=== PATIENT | female | born 1985 | race Caucasian/White ===

== ENCOUNTER 2016-10-07 10:02 | Emergency (ER) | payer MEDICAID ==
[2016-10-07] MEDS ORDERED: DIAZEPAM INJ 10 MG/2 ML DISP.SYRIN IM ONE (11:01)
--- NOTE | 2016-10-07 11:03 | ER Document Report ---
ED Psych Disorder / Suicide - General Chief Complaint: Anxiety Stated Complaint: ANXIEY Time seen by provider: 11:01 Mode of Arrival: Ambulatory Information source: Patient TRAVEL OUTSIDE OF THE [place] IN LAST 30 DAYS: No - HPI Patient complains to provider of: Other - Anxiety/panic attack Onset was: Gradual Severity: Moderate Associated symptoms: Anxious Similar symptoms previously: Yes Notes: Patient is a 31-year-old female with a history of anxiety/panic attacks, who presents to the emergency room complaining of chest tightness with panic attack like symptoms that actually started yesterday, states she had to leave work early yesterday, went home and took Xanax, slept for a few hours, woke up and was feeling much better, but then in order to sleep last night took another half a Xanax and trazodone, slept well throughout the night, states she was getting ready for work this morning, started to feel be anxiety coming on again with chest tightness, and she has been having increasing symptoms since, she took her Wellbutrin this morning but did not take any Xanax as she was planning to go to work, patient reports yesterday was a long day, and she had an argument with her boyfriend over "things that I know are in my head and not really happening", patient is a smoker, occasionally drinks alcohol, and occasionally smokes marijuana - Related Data Allergies/Adverse Reactions: No Known Allergies Allergy (Verified 03/03/15 17:05) Past Medical History - General Information source: Patient - Social History Smoking Status: Current Every Day Smoker Frequency of alcohol use: Occasional Drug Abuse: Marijuana Family History: Reviewed & Not Pertinent Patient has suicidal ideation: No Patient has homicidal ideation: No Renal/ Medical History: Denies: Hx Peritoneal Dialysis Psychiatric Medical History: Reports: Hx Anxiety Past Surgical History: Reports: Hx Section - x2 Review of Systems - Review of Systems Constitutional: No symptoms reported EENT: No symptoms reported Cardiovascular: See HPI Respiratory: No symptoms reported Gastrointestinal: No symptoms reported Genitourinary: No symptoms reported Female Genitourinary: No symptoms reported Musculoskeletal: No symptoms reported Skin: No symptoms reported Hematologic/Lymphatic: No symptoms reported Neurological/Psychological: See HPI -: Yes All other systems reviewed and negative Physical Exam - Vital signs Vitals: Temp Pulse Resp BP Pulse Ox 98.2 F 78 22 H 121/83 100 10/07/16 10:12 10/07/16 10:12 10/07/16 10:12 10/07/16 10:12 10/07/16 10:12 Interpretation: Normal - General General appearance: Appears well, Alert - HEENT Head: Normocephalic, Atraumatic Eyes: Normal Pupils: PERRL - Respiratory Respiratory status: No respiratory distress Chest status: Nontender Breath sounds: Normal Chest palpation: Normal - Cardiovascular Rhythm: Regular Heart sounds: Normal auscultation Murmur: No - Abdominal Inspection: Normal Distension: No distension Bowel sounds: Normal Tenderness: Nontender Organomegaly: No organomegaly - Back Back: Normal, Nontender - Extremities General upper extremity: Normal inspection, Nontender, Normal color, Normal ROM , Normal temperature General lower extremity: Normal inspection, Nontender, Normal color, Normal ROM , Normal temperature, Normal weight bearing. No: Dale's sign - Neurological Neuro grossly intact: Yes Cognition: Normal Orientation: AAOx4 Lynette Coma Scale Eye Opening: Spontaneous Lynette Coma Scale Verbal: Oriented Lynette Coma Scale Motor: Obeys Commands [place] Coma Scale Total: 15 Speech: Normal Motor strength normal: LUE, RUE, LLE, RLE Sensory: Normal - Psychological Associated symptoms: Anxious - Skin Skin Temperature: Warm Skin Moisture: Dry Skin Color: Normal Course - Re-evaluation Re-evalutation: 10/07/16 12:55 Patient resting comfortably, reports feeling much better and ready to go home, lab and imaging findings were discussed with her at bedside which are unremarkable, symptoms are consistent with anxiety/panic attack, she has a follow up with her primary care provider tomorrow afternoon and also has Xanax which she can take at home if symptoms return, she was advised to keep this appointment or return if symptoms worsen, patient acknowledges understanding and agreement with this plan - Vital Signs Vital signs: Temp Pulse Resp BP Pulse Ox 98.2 F 78 22 H 121/83 100 10/07/16 10:12 10/07/16 10:12 10/07/16 10:12 10/07/16 10:12 10/07/16 10:12 - Laboratory Result Diagrams: 10/07/16 11:50 10/07/16 11:50 Laboratory results interpreted by me: 10/07/16 11:50 AST 9 L - Diagnostic Test Radiology reviewed: Image reviewed, Reports reviewed - EKG Interpretation by Me EKG shows normal: Sinus rhythm Rate: Normal Rhythm: NSR Discharge - Discharge Clinical Impression: Anxiety, Panic attack Condition: Stable Disposition: HOME, SELF-CARE Instructions: Anxiety ([facility]), Panic Attack ([facility]) Additional Instructions: Follow up with your primary care provider in one to 2 days. Return to the emergency room immediately if symptoms worsen or any additional concerns. Forms: Return to Work
[2016-10-07 12:08] LABS: ABSOLUTE EOSINOPHILS # (AUTO) 0.1 10^3/uL (0.0-0.6); ABSOLUTE LYMPHOCYTES (AUTO) 1.9 10^3/uL (0.5-4.7); ABSOLUTE MONOCYTES (AUTO) 0.4 10^3/uL (0.1-1.4); ABSOLUTE NEUT (AUTO) 3.4 10^3/uL (1.7-8.2); BASOPHILS % (AUTO) 0.7 % (0-2); EOSINOPHILS % (AUTO) 1.8 % (0-6); HEMATOCRIT 36.9 % (36.0-47.0); HEMOGLOBIN 12.8 g/dL (12.0-15.5); HGB HCT DIFFERENCE 1.5; LYMPHOCYTES % (AUTO) 32.2 % (13-45); MEAN CORPUSCULAR HGB CONC 34.7 g/dL (32.0-36.0); MEAN CORPUSCULAR VOLUME 89 fl (80-97); MONOCYTES % (AUTO) 7.3 % (3-13); RED BLOOD COUNT 4.13 10^6/uL (3.72-5.28); WHITE BLOOD COUNT 5.9 10^3/uL (4.0-10.5)
[2016-10-07 12:25] LABS: ALANINE AMINOTRANSFERASE 22 U/L (9-52); ALBUMIN 4.1 g/dL (3.5-5.0); ALKALINE PHOSPHATASE 44 U/L (38-126); ANION GAP 10 (5-19); ASPARTATE AMINO TRANSFERASE 9 U/L (14-36); BILIRUBIN,DIRECT 0.1 mg/dL (0.0-0.4); BILIRUBIN,TOTAL 0.5 mg/dL (0.2-1.3); BLOOD UREA NITROGEN 14 mg/dL (7-20); CALCIUM 9.5 mg/dL (8.4-10.2); CARBON DIOXIDE 24 mmol/L (22-30); CHLORIDE 105 mmol/L (98-107); CREATINE KINASE 77 U/L (30-135); CREATININE RESULT 0.81 mg/dL (0.52-1.25); GLUCOSE 95 mg/dL (75-110); POTASSIUM 4.4 mmol/L (3.6-5.0); SODIUM 139.4 mmol/L (137-145); TOTAL PROTEIN 6.7 g/dL (6.3-8.2)
[2016-10-07 12:36] LABS: CREATINE KINASE MB < 0.22 ng/mL (<4.55)
[2016-10-07 12:40] LABS: TROPONIN I < 0.012 ng/mL
[2016-10-07 13:39] VITALS: BP 120/75
--- NOTE | 2016-10-07 19:03 | EKG REPORT ---
SEVERITY:- NORMAL ECG - SINUS RHYTHM : Confirmed by: Magno Brewster 07-Oct-2016 19:02:27
== END 2016-10-07 13:39 | disposition home or self-care (01) ==
LOC: ER 10:02
DX: F41.0 Panic disorder [episodic paroxysmal anxiety] (principal); F41.9 Anxiety disorder, unspecified; F17.200 Nicotine dependence, unspecified, uncomplicated
CPT/HCPCS: 93005; 99284; 96372; 36415; 82553; 82550; 84703; 85025; 80053; 84484; 71020; 93010; J3360

== ENCOUNTER 2017-03-22 19:32 | Emergency (ER) | payer MEDICAID, OTHER ==
[2017-03-22 19:40] VITALS: BP 118/76
[2017-03-22] MEDS ORDERED: METHYLPREDNISOLONE INJ 40 MG/1 ML SDV IM ONE (20:04)
[2017-03-22] MEDS ORDERED: KETOROLAC TROMETHAMINE INJ/PF 30 MG/1 ML SDV IM ONE (20:04)
[2017-03-22] MEDS ORDERED: CYCLOBENZAPRINE HCL 10 MG TABLET PO ONE (20:04)
--- NOTE | 2017-03-22 20:04 | ER Document Report ---
ED General - General Chief Complaint: Low Back Pain Stated Complaint: SEVERE LOWER BACK PAIN Time Seen by Provider: 03/22/17 19:46 Notes: Patient is a 32-year-old female presents emergency department complaining of low back pain and hip pain. Patient states that she has a history of this on and off for a couple of years but it has not been this severe since 2015. She states that she is to see a chiropractor for it she was told that her left hip gets out of alignment. But she states she has been able to walk on it without difficulty she admits to pain along her thigh into her left hip and into her left lower back. She denies any urinary/incontinence, saddle anesthesia, numbness or tingling in her distal extremities. denies any trauma or fall TRAVEL OUTSIDE OF THE [place] IN LAST 30 DAYS: No - Related Data Allergies/Adverse Reactions: No Known Allergies Allergy (Verified 03/22/17 19:36) Past Medical History - Social History Smoking Status: Current Every Day Smoker Family History: Reviewed & Not Pertinent Renal/ Medical History: Denies: Hx Peritoneal Dialysis Psychiatric Medical History: Reports: Hx Anxiety Past Surgical History: Reports: Hx Section - x2 - Immunizations Hx Diphtheria, Pertussis, Tetanus Vaccination: Yes Review of Systems - Review of Systems Constitutional: No symptoms reported Musculoskeletal: See HPI Neurological/Psychological: See HPI -: Yes All other systems reviewed and negative Physical Exam - Vital signs Vitals: Temp Pulse BP Pulse Ox 97.5 F 81 118/76 99 03/22/17 19:38 03/22/17 19:38 03/22/17 19:38 03/22/17 19:38 - General General appearance: Appears well, Alert In distress: None - Back Back: Normal, Tender - Tenderness in the left lumbar paraspinous musculature. No: Deformity/step-off, CVA tenderness, Vertebra tenderness, Scars, Scoliosis, Wounds - Extremities General lower extremity: Normal inspection, Nontender, Normal color, Normal ROM , Normal strength, Normal temperature, Normal weight bearing. No: Dale's sign Hip: Normal, Nontender. No: Tender, Abrasion, Deformity, Dislocation, Ecchymosis, Instability, Laceration, Pain with ROM, Unable to bear weight, Other Thigh: Normal, Nontender. No: Tender, Abrasion, Deformity, Dislocation, Ecchymosis, Instability, Laceration, Unable to bear weight, Other - Neurological Motor strength normal: LLE, RLE Additional motor exam normals: No: Weakness Sensory: Normal Course - Re-evaluation Re-evalutation: 03/22/17 21:17 Patient is a 32-year-old female who is hemodynamic stable, no acute distress afebrile. Patient symptoms have improved drastically with medications received in the department. States that she will follow-up with her primary care provider on Friday. Patient able to ambulate without assistance. The patient presents with low back pain without signs of spinal cord compression, cauda equina syndrome, infection, aneurysm, or other serious etiology. The patient is neurologically intact. Given the extremely low risk of these diagnoses further testing and evaluation for these possibilities does not appear to be indicated at this time. The patient has been instructed to return if the symptoms worsen or change in any way. - Vital Signs Vital signs: Temp Pulse Resp BP Pulse Ox 97.5 F 81 118/76 99 03/22/17 19:38 03/22/17 19:38 03/22/17 19:38 03/22/17 19:38 Discharge - Discharge Clinical Impression: Low back pain Qualifiers: Chronicity: unspecified Back pain laterality: left Sciatica presence: without sciatica Qualified Code(s): M54.5 - Low back pain Condition: Good Disposition: HOME, SELF-CARE Additional Instructions: LOW BACK PAIN: Three out of every four people will have an episode of disabling back pain during their lifetime. Most commonly the pain is due to straining of the muscles and ligaments in the low back. Usual treatment includes: (1) Rest on a firm surface. Avoid lying on your stomach. (2) Ice pack the painful area. After a few days, gentle heat may be used intermittently to relax the area, or ice packs can be continued. (3) Medication may be needed -- muscle relaxers and antiinflammatory medicines are commonly used. (4) As the back improves, exercises are prescribed to strengthen the back and abdominal muscles. Your doctor will advise you on the proper care for your back at each stage in your recovery. You may be better in a few days -- or healing may take several weeks. If new symptoms of a "herniated disc" (radiation of pain, numbness, or tingling down the back of the leg or weakness in the leg) occur, you should be re-examined. Further testing may be necessary. PAIN MEDICATION INJECTION: You have received an injection of a pain medication. You should experience significant pain relief within 45 minutes. If this injection was a narcotic -- it will impair your judgement, slow your reaction time and make you sleepy (as well as relieve your pain). Narcotics also can cause nausea. You should not drive, work with machinery, or perform any task requiring mental alertness until all effects of the medication are gone -- six to eight hours. Do not take any alcohol, or sedatives, and do not take any other medication without checking with your physician. MUSCLE RELAXERS: Muscle relaxing medications are usually prescribed for acute muscle spasm or injury to the neck and back. They are often combined with antiinflammatory pain medication for increased relief. You may stop the muscle relaxer when the pain and stiffness have improved. Start the medication again if spasms recur. Muscle relaxers may cause drowsiness, especially with the first dose. Do not operate machinery or drive while under the effects of the medication. Most muscle relaxers last up to 24 hours. Do not combine the medication with alcohol. ICE PACKS: Apply ice packs frequently against the painful area. Many different schedules are recommended, such as "20 minutes on, 20 minutes off" or "one hour ice, two hours rest." If you need to work, you may need to go longer between ice treatments. You should plan to have the area ice packed AT LEAST one fourth of the time. The ice should be applied over the wrap, tape, or splint, or over a layer of cloth -- not directly against the skin. Some ice bags have a built-in cloth and can be put directly on the skin. WARM PACKS: After approximately two days, apply gentle heat (such as a heating pad or hot water bottle) for about 20 to 30 minutes about every two hours -- at least four times daily. Warmth and elevation will help you make a more rapid recovery , and will ease the pain considerably. Do not use HOT heat, and never apply heat for longer than 30 minutes. The continuous heat can invisibly damage skin and muscles -- even when no burn is seen on the surface. Damaged muscles can make you MORE sore. FOLLOW-UP CARE: If you have been referred to a physician for follow-up care, call the physician s office for an appointment as you were instructed or within the next two days. If you experience worsening or a significant change in your symptoms, notify the physician immediately or return to the Emergency Department at any time for re-evaluation. Prescriptions: Cyclobenzaprine HCl [Flexeril 10 mg Tablet] 10 mg PO TIDP PRN #15 tab PRN Reason: Methylprednisolone [Medrol Dosepack (4 mg/Tab) 21 Tab/Dosepak] 4 mg PO ASDIR PRN #21 tab.ds.pk PRN Reason: Referrals: MARTA ROBLES DO [Primary Care Provider] - 03/24/17
== END 2017-03-22 21:24 | disposition home or self-care (01) ==
LOC: ER 19:32
DX: M54.5 Low back pain (principal); M25.552 Pain in left hip; F17.200 Nicotine dependence, unspecified, uncomplicated
CPT/HCPCS: 99283; 96372; J3490; J2920; J1885

== ENCOUNTER → 2017-07-07 | Outpatient (CLI) | payer MEDICAID ==
[2017-07-07 12:49] LABS: T.VAGINALIS (WET MOUNT) NO TRICHOMONAS SEEN; YEAST (WET MOUNT) NO YEAST SEEN
[2017-07-07 12:50] LABS: BACTERIA (WET MOUNT) 3+ BACTERIA SEEN; RBCS (WET MOUNT) 2+ RBCS SEEN; WBCS (WET MOUNT) 2+ WBCS SEEN
[2017-07-07 14:17] LABS: CHLAM PCR NOT DETECTED (NOT DETECT); GON PCR NOT DETECTED (NOT DETECT)
== END ==
LOC: LAB 12:43
PROVIDERS: ATTEND Nurse Practitioner Acute Care
DX: N89.8 Other specified noninflammatory disorders of vagina (principal); R30.0 Dysuria
CPT/HCPCS: 87086; 87210; 87491; 87591

== ENCOUNTER 2017-07-25 09:03 | Emergency (ER) | payer MEDICAID ==
[2017-07-25 09:15] VITALS: BP 106/68
--- NOTE | 2017-07-25 09:44 | ER Document Report ---
ED Medical Screen (RME) - General Chief Complaint: Abdominal Pain Stated Complaint: ABDOMINAL PAIN Time Seen by Provider: 07/25/17 09:29 Notes: 32-year-old female patient with some crampy abdominal pain for the last few days. Started having diarrhea yesterday. Multiple episodes. No syncope. No blood in stool. Nausea but no vomiting. Pain is not localized to any particular area but seems to be more crampy in the left lower abdomen. TRAVEL OUTSIDE OF THE [place] IN LAST 30 DAYS: No - HPI Onset: Yesterday Quality of pain: Cramping Severity: Moderate Pain Level: 2 Associated Symptoms: Diarrhea, Nausea - Related Data Allergies/Adverse Reactions: No Known Allergies Allergy (Verified 03/22/17 19:36) Past Medical History - General Information source: Patient - Social History Frequency of alcohol use: None Drug Abuse: Marijuana Lives with: Spouse/Significant other Family history: None, Reviewed & Not Pertinent - Past Medical History Cardiac Medical History: Reports: None Pulmonary Medical History: Reports: None Renal/ Medical History: Reports: None. Denies: Hx Peritoneal Dialysis Psychiatric Medical History: Reports: Hx Anxiety Past Surgical History: Reports: Hx Section - x2 - Immunizations Hx Diphtheria, Pertussis, Tetanus Vaccination: Yes Review of Systems - Review of Systems Constitutional: denies: Fever, Malaise, Weakness EENT: denies: Blurred vision, Double vision, Ear pain Cardiovascular: denies: Palpitations, Heart racing, Orthopnea Respiratory: denies: Cough, Hurts to breathe, Hemoptysis, Short of breath, Wheezing Gastrointestinal: Abdominal pain, Diarrhea, Nausea, Poor fluid intake. denies: Vomiting, Constipation, Black stools, Rectal bleeding Genitourinary: denies: Burning, Dysuria, Discharge, Frequency, Urgency Female Genitourinary: denies: , Vaginal discharge, Vaginal bleeding, Vaginal odor Musculoskeletal: denies: Back pain, Joint pain, Muscle pain, Muscle stiffness Skin: denies: Change in color, Dryness, Lesions, Rash Hematologic/Lymphatic: denies: Anemia, Blood clots, Easy bleeding, Easy bruising Neurological/Psychological: denies: Confusion, Lost consciousness, Headaches Physical Exam - Vital signs Vitals: Temp Pulse Resp BP Pulse Ox 98.3 F 76 17 106/68 98 07/25/17 09:14 02/02/18 09:14 07/25/17 09:14 07/25/17 09:14 07/25/17 09:14 Interpretation: Normal - General General appearance: Appears well, Alert - HEENT Head: Normocephalic, Atraumatic Eyes: Normal Pupils: PERRL - Respiratory Respiratory status: No respiratory distress Chest status: Nontender Breath sounds: Normal Chest palpation: Normal - Cardiovascular Rhythm: Regular Heart sounds: Normal auscultation Murmur: No - Abdominal Inspection: Normal Distension: No distension Bowel sounds: Hyperactive Tenderness: Nontender Organomegaly: No organomegaly - Back Back: Normal, Nontender - Extremities General upper extremity: Normal inspection, Nontender, Normal color, Normal ROM , Normal temperature General lower extremity: Normal inspection, Nontender, Normal color, Normal ROM , Normal temperature, Normal weight bearing. No: Dale's sign - Neurological Neuro grossly intact: Yes Cognition: Normal Orientation: AAOx4 Lynette Coma Scale Eye Opening: Spontaneous [place]ette Coma Scale Verbal: Oriented [place] Coma Scale Motor: Obeys Commands [place] Coma Scale Total: 15 Speech: Normal Motor strength normal: LUE, RUE, LLE, RLE Sensory: Normal - Psychological Associated symptoms: Normal affect, Normal mood - Skin Skin Temperature: Warm Skin Moisture: Dry Skin Color: Normal Course - Re-evaluation Re-evalutation: 07/25/17 10:10 Some IV fluids, Zofran, Toradol, blood work, urinalysis and reassess. 07/25/17 12:38 Tolerating p.o. Looks much better. Stool culture has been obtained. Will DC at this time. Patient advised to return if any worsening symptoms, high fevers , severe abdominal pain or other issues. - Vital Signs Vital signs: Temp Pulse Resp BP Pulse Ox 98.3 F 76 17 106/68 98 07/25/17 09:14 07/25/17 09:14 07/25/17 09:14 07/25/17 09:14 07/25/17 09:14 - Laboratory Result Diagrams: 07/25/17 10:17 07/25/17 10:17 Laboratory results interpreted by me: 07/25/17 07/25/17 07/25/17 10:17 10:17 10:17 WBC 11.1 H Seg Neutrophils % 79.3 H Absolute Neutrophils 8.8 H Calcium 10.3 H AST 8 L Urine Blood SMALL H Doctor's Discharge - Discharge Clinical Impression: Enteritis Condition: Good Disposition: HOME, SELF-CARE Instructions: Abdominal Pain ([facility]), Diarrhea, Nonspecific ([facility]) Additional Instructions: If pain gets worse, severe fever, intractable vomiting or other concerns please return for repeat evaluation especially if symptoms are worse in the next 12-24 hours. Prescriptions: Hydrocodone/Acetaminophen [[place] 5-325 mg Tablet] 1 tab PO BID PRN 4 Days #8 tablet PRN Reason: Ondansetron [Zofran Odt 4 mg Tablet] 1 - 2 tab PO Q4H PRN #15 tab.rapdis PRN Reason: For Nausea/Vomiting Forms: Return to Work
[2017-07-25] MEDS ORDERED: ONDANSETRON HCL INJ/PF 4 MG/2 ML SDV IV ONE (09:45)
[2017-07-25] MEDS ORDERED: NORMAL SALINE 1000 ML 1,000 ML IV ONE (09:45)
[2017-07-25] MEDS ORDERED: FAMOTIDINE INJ/PF 20 MG/2 ML SDV IV ONE (09:46)
[2017-07-25 10:33] LABS: ABSOLUTE EOSINOPHILS # (AUTO) 0.1 10^3/uL (0.0-0.6); ABSOLUTE LYMPHOCYTES (AUTO) 1.6 10^3/uL (0.5-4.7); ABSOLUTE MONOCYTES (AUTO) 0.6 10^3/uL (0.1-1.4); ABSOLUTE NEUT (AUTO) 8.8 10^3/uL (1.7-8.2); BASOPHILS % (AUTO) 0.3 % (0-2); EOSINOPHILS % (AUTO) 1.1 % (0-6); HEMATOCRIT 39.5 % (36.0-47.0); HEMOGLOBIN 13.5 g/dL (12.0-15.5); LYMPHOCYTES % (AUTO) 14.1 % (13-45); MEAN CORPUSCULAR HEMOGLOBIN 30.5 pg (27.0-33.4); MEAN CORPUSCULAR HGB CONC 34.2 g/dL (32.0-36.0); MEAN CORPUSCULAR VOLUME 89 fl (80-97); MONOCYTES % (AUTO) 5.2 % (3-13); PLATELET COUNT 346 10^3/uL (150-450); RED BLOOD COUNT 4.43 10^6/uL (3.72-5.28); RED CELL DISTRIBUTION WIDTH 13.4 % (11.5-14.0); SEGMENTED NEUTROPHILS % (AUTO) 79.3 % (42-78); TOTAL CELLS COUNTED % (AUTO) 100 %; WHITE BLOOD COUNT 11.1 10^3/uL (4.0-10.5)
[2017-07-25 10:44] LABS: ALANINE AMINOTRANSFERASE 20 U/L (9-52); ALBUMIN 4.6 g/dL (3.5-5.0); ALKALINE PHOSPHATASE 43 U/L (38-126); ANION GAP 11 (5-19); ASPARTATE AMINO TRANSFERASE 8 U/L (14-36); BILIRUBIN,DIRECT 0.4 mg/dL (0.0-0.4); BILIRUBIN,TOTAL 0.5 mg/dL (0.2-1.3); BLOOD UREA NITROGEN 15 mg/dL (7-20); CALCIUM 10.3 mg/dL (8.4-10.2); CARBON DIOXIDE 23 mmol/L (22-30); CHLORIDE 105 mmol/L (98-107); GLUCOSE 89 mg/dL (75-110); POTASSIUM 4.5 mmol/L (3.6-5.0); SODIUM 139.4 mmol/L (137-145); TOTAL PROTEIN 7.3 g/dL (6.3-8.2)
[2017-07-25] MEDS ORDERED: HYDROCODONE/ACETAMINOPHEN 5-325 MG TABLET PO ONE (11:10)
[2017-07-25 11:52] LABS: AMORPHOUS SEDIMENT,URINE TRACE /HPF; APPEARANCE,URINE TURBID; BILIRUBIN,URINE NEGATIVE (NEGATIVE); CALCIUM OXALATE CRYSTALS,URINE FEW /HPF; COLOR,URINE YELLOW; GLUCOSE, URINE NEGATIVE (NEGATIVE); KETONES,URINE NEGATIVE (NEGATIVE); LEUKOCYTE ESTERASE,URINE NEGATIVE (NEGATIVE); NITRITE,URINE NEGATIVE (NEGATIVE); PROTEIN,URINE NEGATIVE (NEGATIVE); URINE SPECIFIC GRAVITY 1.025; UROBILINOGEN,URINE NEGATIVE mg/dL (<2.0)
== END 2017-07-25 12:45 | disposition home or self-care (01) ==
LOC: ER 09:03
DX: K52.9 Noninfective gastroenteritis and colitis, unspecified (principal); R10.9 Unspecified abdominal pain
CPT/HCPCS: 99284; 96361; 96374; 96375; 36415; 87045; 87205; 84703; 85025; 80053; 81001; 87493; J2405; J7030; S0028

== ENCOUNTER 2017-10-03 10:47 | Emergency (ER) | payer SELFPAY ==
[2017-10-03 11:39] LABS: APPEARANCE,URINE SLIGHTLY-CLOUDY; BILIRUBIN,URINE NEGATIVE (NEGATIVE); COLOR,URINE YELLOW; GLUCOSE, URINE NEGATIVE (NEGATIVE); KETONES,URINE 20 mg/dL (NEGATIVE); LEUKOCYTE ESTERASE,URINE NEGATIVE (NEGATIVE); NITRITE,URINE NEGATIVE (NEGATIVE); PROTEIN,URINE 100 mg/dL (NEGATIVE); URINE SPECIFIC GRAVITY 1.019; UROBILINOGEN,URINE NEGATIVE mg/dL (<2.0)
[2017-10-03] MEDS ORDERED: ONDANSETRON 4 MG TAB.RAPDIS PO ONE (11:49)
[2017-10-03] MEDS ORDERED: NORMAL SALINE 1000 ML 1,000 ML IV ONE (11:50)
--- NOTE | 2017-10-03 11:51 | ER Document Report ---
ED Medical Screen (RME) - General Chief Complaint: Abdominal Pain Stated Complaint: ABDOMINAL PAIN, VOMITING Time Seen by Provider: 10/03/17 11:44 Notes: 32-year-old female patient reports abdominal pain and cramps for a few days, onset about 6 AM this morning of vomiting with diarrhea. She reports a lot of diarrhea episodes. She is quite nauseous now and was vomiting at triage. LMP was 09/22/2017 I have greeted and performed a rapid initial assessment of this patient. A comprehensive ED assessment and evaluation of the patient, analysis of test results and completion of the medical decision making process will be conducted by additional ED providers. TRAVEL OUTSIDE OF THE [place] IN LAST 30 DAYS: No - Related Data Allergies/Adverse Reactions: No Known Allergies Allergy (Verified 03/22/17 19:36) Past Medical History - Social History Chew tobacco use (# tins/day): No Frequency of alcohol use: Occasional Drug Abuse: None Family history: None, Reviewed & Not Pertinent Renal/ Medical History: Denies: Hx Peritoneal Dialysis Psychiatric Medical History: Reports: Hx Anxiety Past Surgical History: Reports: Hx Section - x2 - Immunizations Hx Diphtheria, Pertussis, Tetanus Vaccination: Yes Physical Exam - Vital signs Vitals: Temp Pulse Resp BP Pulse Ox 97.5 F 70 18 111/72 98 10/03/17 11:01 10/03/17 11:01 10/03/17 11:01 10/03/17 11:01 10/03/17 11:01 Course - Vital Signs Vital signs: Temp Pulse Resp BP Pulse Ox 97.5 F 70 18 111/72 98 10/03/17 11:01 10/03/17 11:01 10/03/17 11:01 10/03/17 11:01 10/03/17 11:01 - Laboratory Laboratory results interpreted by me: 10/03/17 11:15 Urine Protein 100 H Urine Ketones 20 H
[2017-10-03 12:30] LABS: ABSOLUTE BASOPHILS # (AUTO) 0.1 10^3/uL (0.0-0.2); ABSOLUTE LYMPHOCYTES (AUTO) 1.2 10^3/uL (0.5-4.7); ABSOLUTE MONOCYTES (AUTO) 0.7 10^3/uL (0.1-1.4); ABSOLUTE NEUT (AUTO) 10.6 10^3/uL (1.7-8.2); BASOPHILS % (AUTO) 0.4 % (0-2); EOSINOPHILS % (AUTO) 0.2 % (0-6); HEMATOCRIT 40.5 % (36.0-47.0); HEMOGLOBIN 13.8 g/dL (12.0-15.5); LYMPHOCYTES % (AUTO) 9.8 % (13-45); MEAN CORPUSCULAR HEMOGLOBIN 30.1 pg (27.0-33.4); MEAN CORPUSCULAR HGB CONC 34.2 g/dL (32.0-36.0); MEAN CORPUSCULAR VOLUME 88 fl (80-97); MONOCYTES % (AUTO) 5.4 % (3-13); PLATELET COUNT 515 10^3/uL (150-450); RED CELL DISTRIBUTION WIDTH 13.1 % (11.5-14.0); SEGMENTED NEUTROPHILS % (AUTO) 84.2 % (42-78); TOTAL CELLS COUNTED % (AUTO) 100 %; WHITE BLOOD COUNT 12.6 10^3/uL (4.0-10.5)
--- NOTE | 2017-10-03 12:30 | ER Document Report ---
ED General - General Chief Complaint: Abdominal Pain Stated Complaint: ABDOMINAL PAIN, VOMITING Time Seen by Provider: 10/03/17 11:44 Mode of Arrival: Ambulatory Information source: Patient Notes: 32-year-old female 2 para 1 who is 11 weeks presents with concerns for anxiety. Patient notes she has been hyperventilating, she has been feeling very anxious and stressful. She denies any abdominal pain denies any fevers or chills, denies any productive cough. Patient notes that she has been seen twice in the past week and diagnosed with asthma but she is never wheeze, she notes that she has been breathing very fast. TRAVEL OUTSIDE OF THE [place] IN LAST 30 DAYS: No - HPI Onset: Just prior to arrival Onset/Duration: Sudden Quality of pain: No pain Severity: Mild Pain Level: Denies Associated symptoms: Other Exacerbated by: Denies Relieved by: Denies Similar symptoms previously: Yes Recently seen / treated by doctor: Yes - Related Data Allergies/Adverse Reactions: No Known Allergies Allergy (Verified 03/22/17 19:36) Past Medical History - Social History Smoking Status: Current Every Day Smoker Cigarette use (# per day): Yes Chew tobacco use (# tins/day): No Smoking Education Provided: Yes Frequency of alcohol use: Occasional Drug Abuse: None Family History: Reviewed & Not Pertinent Patient has suicidal ideation: No Patient has homicidal ideation: No Renal/ Medical History: Denies: Hx Peritoneal Dialysis Psychiatric Medical History: Reports: Hx Anxiety Past Surgical History: Reports: Hx Section - x2 - Immunizations Hx Diphtheria, Pertussis, Tetanus Vaccination: Yes Review of Systems - Review of Systems Notes: REVIEW OF SYSTEMS: CONSTITUTIONAL : Denies fever, chills, or sweats. Denies recent illness. EENT: Denies eye, ear, throat, or mouth pain or symptoms. Denies nasal or sinus congestion or discharge. Denies throat, tongue, or mouth swelling or difficulty swallowing. CARDIOVASCULAR: Denies chest pain. Denies palpitations or racing or irregular heart beat. Denies ankle edema. RESPIRATORY: Denies cough, cold, or chest congestion. Denies shortness of breath, difficulty breathing, or wheezing. GASTROINTESTINAL: Admits to abdominal cramping nausea vomiting diarrhea GENITOURINARY: Denies difficulty urinating, painful urination, burning, frequency, blood in urine, or discharge. FEMALE GENITOURINARY: Denies vaginal bleeding, heavy or abnormal periods, irregular periods. Denies vaginal discharge or odor. MUSCULOSKELETAL: Denies back or neck pain or stiffness. Denies joint pain or swelling. SKIN: Denies rash, lesions or sores. HEMATOLOGIC : Denies easy bruising or bleeding. LYMPHATIC: Denies swollen, enlarged glands. NEUROLOGICAL: Denies confusion or altered mental status. Denies passing out or loss of consciousness. Denies dizziness or lightheadedness. Denies headache. Denies weakness or paralysis or loss of use of either side. Denies problems with gait or speech. Denies sensory loss, numbness, or tingling. Denies seizures. PSYCHIATRIC: Denies anxiety or stress. Denies depression, suicidal ideation, or homicidal ideation. ALL OTHER SYSTEMS REVIEWED AND NEGATIVE. PHYSICAL EXAMINATION: GENERAL: Well-appearing, well-nourished and in no acute distress. HEAD: Atraumatic, normocephalic. EYES: Pupils equal round and reactive to light, extraocular movements intact, conjunctiva are normal. ENT: Nares patent, oropharynx clear without exudates. Moist mucous membranes. NECK: Normal range of motion, supple without lymphadenopathy LUNGS: Breath sounds clear to auscultation bilaterally and equal. No wheezes rales or rhonchi. HEART: Regular rate and rhythm without murmurs ABDOMEN: Soft, nontender, nondistended abdomen. No guarding, no rebound. No masses appreciated. Female : deferred Musculoskeletal: Normal range of motion, no pitting or edema. No cyanosis. NEUROLOGICAL: Cranial nerves grossly intact. Normal speech, normal gait. Normal sensory, motor exams PSYCH: Normal mood, normal affect. SKIN: Warm, Dry, normal turgor, no rashes or lesions noted. Dictation was performed using [employer] voice recognition software Physical Exam - Vital signs Vitals: Temp Pulse Resp BP Pulse Ox 97.5 F 70 18 111/72 98 10/03/17 11:01 10/03/17 11:01 10/03/17 11:01 10/03/17 11:01 10/03/17 11:01 Course - Re-evaluation Re-evalutation: 10/03/17 15:19 Patient's presentation is quite benign, she has had nausea vomiting diarrhea without fevers and without any severe abdominal pain, she was given Bentyl which resolved her cramping sensation. Patient appears to be a viral syndrome is otherwise stable for discharge patient was given multiple doses of nausea control and states she feels much better and her symptoms have ceased After performing a Medical Screening Examination, I estimate there is LOW risk for ACUTE APPENDICITIS, BOWEL OBSTRUCTION, ACUTE CHOLECYSTITIS, PERFORATED DIVERTICULITIS, INCARCERATED HERNIA, PANCREATITIS, PELVIC INFLAMMATORY DISEASE, PERFORATED ULCER, ECTOPIC , or TUBO-OVARIAN ABSCESS, thus I consider the discharge disposition reasonable. Also, there is no evidence or peritonitis , sepsis, or toxicity. I have reevaluated this patient multiple times and no significant life threatening changes are noted. The patient and I have discussed the diagnosis and risks, and we agree with discharging home with close follow-up with the understanding that symptoms and presentations can change. We also discussed returning to the Emergency Department immediately if new or worsening symptoms occur. We have discussed the symptoms which are most concerning (e.g., bloody stool, fever, changing or worsening pain, vomiting) that necessitate immediate return. - Vital Signs Vital signs: Temp Pulse Resp BP Pulse Ox 97.5 F 70 18 111/72 98 10/03/17 11:01 10/03/17 11:01 10/03/17 11:01 10/03/17 11:01 10/03/17 11:01 - Laboratory Result Diagrams: 10/03/17 12:08 10/03/17 12:08 Laboratory results interpreted by me: 10/03/17 10/03/17 10/03/17 11:15 12:08 12:08 WBC 12.6 H Plt Count 515 H Seg Neutrophils % 84.2 H Lymphocytes % 9.8 L Absolute Neutrophils 10.6 H Carbon Dioxide 19 L Glucose 131 H Urine Protein 100 H Urine Ketones 20 H Discharge - Discharge Clinical Impression: Nausea vomiting and diarrhea Condition: Stable Disposition: HOME, SELF-CARE Instructions: Vomiting ([facility]) Additional Instructions: Follow up with your physician tomorrow for further care or return to the ED IMMEDIATELY if symptoms worsen or new concerns occur. If you cannot afford to follow up with your primary care physician a list of low cost clinics have been provided at the end of your discharge papers as well. Prescriptions: Dicyclomine HCl [Bentyl 20 mg Tablet] 20 mg PO QID #40 tablet Metoclopramide HCl [Reglan 10 mg Tablet] 1 - 2 tab PO Q6 #25 tablet Promethazine HCl [Promethegan] 50 mg RC Q6 #10 supp.rect
[2017-10-03 12:47] LABS: ALANINE AMINOTRANSFERASE 18 U/L (9-52); ALBUMIN 4.9 g/dL (3.5-5.0); ALKALINE PHOSPHATASE 61 U/L (38-126); ANION GAP 19 (5-19); ASPARTATE AMINO TRANSFERASE 15 U/L (14-36); BILIRUBIN,DIRECT 0.3 mg/dL (0.0-0.4); BILIRUBIN,TOTAL 0.6 mg/dL (0.2-1.3); BLOOD UREA NITROGEN 16 mg/dL (7-20); CALCIUM 10.2 mg/dL (8.4-10.2); CARBON DIOXIDE 19 mmol/L (22-30); CHLORIDE 104 mmol/L (98-107); GLUCOSE 131 mg/dL (75-110); POTASSIUM 3.8 mmol/L (3.6-5.0); SODIUM 141.6 mmol/L (137-145); TOTAL PROTEIN 7.7 g/dL (6.3-8.2)
[2017-10-03] MEDS ORDERED: METOCLOPRAMIDE HCL INJ/PF 10 MG/2 ML SDV IV ONE (13:07)
[2017-10-03] MEDS ORDERED: DICYCLOMINE HCL INJ 20 MG/2 ML AMPULE IM ONE (13:08)
[2017-10-03] MEDS ORDERED: PROMETHAZINE HCL INJ 50 MG/1 ML VIAL IM ONE (14:21)
[2017-10-03] MEDS ORDERED: HALOPERIDOL LACTATE INJ 5 MG/1 ML VIAL IV ONE (14:44)
[2017-10-03] MEDS ORDERED: DIPHENHYDRAMINE HCL 50 MG/ML VIAL IV ONE (14:44)
[2017-10-03 15:48] VITALS: BP 121/80
== END 2017-10-03 15:48 | disposition home or self-care (01) ==
LOC: ER 10:47
DX: O98.811 Other maternal infectious and parasitic diseases complicating pregnancy, first trimester (principal); A04.72 Enterocolitis due to Clostridium difficile, not specified as recurrent; O21.9 Vomiting of pregnancy, unspecified; O26.891 Other specified pregnancy related conditions, first trimester; R19.7 Diarrhea, unspecified; R10.9 Unspecified abdominal pain; O99.331 Smoking (tobacco) complicating pregnancy, first trimester; Z3A.11 11 weeks gestation of pregnancy
CPT/HCPCS: 99284; 96372; 96361; 96374; 96375; 36415; 87045; 89055; 87205; 85025; 81025; 80053; 81001; 87493; J0500; J1200; S0119; J1630; J2765; J7030

== ENCOUNTER 2017-10-04 18:08 | Emergency (ER) | payer SELFPAY ==
[2017-10-04] MEDS ORDERED: DIPHENHYDRAMINE HCL 50 MG/ML VIAL ONE (18:23)
[2017-10-04] MEDS ORDERED: DIPHENHYDRAMINE HCL 50 MG/ML VIAL IV ONE (18:24)
--- NOTE | 2017-10-04 18:26 | ER Document Report ---
ED Allergic Reaction - General Chief Complaint: Facial Swelling Stated Complaint: POSSIBLE ALLERGIC REACTION Time Seen by Provider: 10/04/17 18:19 Notes: The patient is a 32-year-old female who presents with abnormal tongue movements and facial grimacing over the past few hours. She was recently started on Reglan for nausea. Patient denies difficulty swallowing, wheezing, chest pain, rash, tongue swelling or stridor. TRAVEL OUTSIDE OF THE [place] IN LAST 30 DAYS: No - Related Data Allergies/Adverse Reactions: No Known Allergies Allergy (Verified 03/22/17 19:36) Past Medical History - General Information source: Patient - Social History Smoking Status: Unknown if Ever Smoked Family History: Reviewed & Not Pertinent Renal/ Medical History: Denies: Hx Peritoneal Dialysis Psychiatric Medical History: Reports: Hx Anxiety Past Surgical History: Reports: Hx Section - x2 - Immunizations Hx Diphtheria, Pertussis, Tetanus Vaccination: Yes Review of Systems - Review of Systems Notes: REVIEW OF SYSTEMS: CONSTITUTIONAL: -fevers, -chills EENT: -eye pain, -difficulty swallowing, -nasal congestion, +tongue movements CARDIOVASCULAR: -chest pain, -syncope. RESPIRATORY: -cough, -SOB GASTROINTESTINAL: -abdominal pain, -nausea, -vomiting, -diarrhea GENITOURINARY: -dysuria, -hematuria MUSCULOSKELETAL: -back pain, -neck pain SKIN: -rash or skin lesions. HEMATOLOGIC: -easy bruising or bleeding. LYMPHATIC: -swollen, enlarged glands. NEUROLOGICAL: -altered mental status or loss of consciousness, -headache, - neurologic symptoms PSYCHIATRIC: -anxiety, -depression. ALL OTHER SYSTEMS REVIEWED AND NEGATIVE. Physical Exam - Vital signs Vitals: Temp Pulse Resp BP Pulse Ox 97.9 F 98 16 130/84 H 98 10/04/17 18:13 10/04/17 18:13 10/04/17 18:13 10/04/17 18:13 10/04/17 18:13 - Notes Notes: PHYSICAL EXAMINATION: GENERAL: Well-appearing, well-nourished and in no acute distress. HEAD: Atraumatic, normocephalic. EYES: Pupils equal round and reactive to light, extraocular movements intact, sclera anicteric, conjunctiva are normal. ENT: Abnormal tongue movements, facial grimacing, nares patent, oropharynx clear without exudates. Moist mucous membranes. NECK: Normal range of motion, supple without lymphadenopathy LUNGS: Breath sounds clear to auscultation bilaterally and equal. No wheezes rales or rhonchi. HEART: Regular rate and rhythm without murmurs ABDOMEN: Soft, nontender, normoactive bowel sounds. No guarding, no rebound. No masses appreciated. EXTREMITIES: Normal range of motion, no pitting or edema. No cyanosis. NEUROLOGICAL: Cranial nerves grossly intact. Normal speech, normal gait. Normal sensory and motor exams. PSYCH: Normal mood, normal affect. SKIN: Warm, Dry, normal turgor, no rashes or lesions noted. Course - Re-evaluation Re-evalutation: Pt with evidence of tardive dyskinesia after beginning Reglan. After IV Benadryl, her symptoms completely resolved. There is no evidence of anaphylaxis or airway compromise at this time. Instructed her to not take the Reglan and if the symptoms return, she may take Benadryl. Given strict return precautions and she understands. - Vital Signs Vital signs: Temp Pulse Resp BP Pulse Ox 98 F 88 16 126/83 H 99 10/04/17 18:46 10/04/17 18:46 10/04/17 18:46 10/04/17 18:46 10/04/17 18:46 Discharge - Discharge Clinical Impression: Tardive dyskinesia Condition: Stable Disposition: HOME, SELF-CARE Additional Instructions: Do not take Reglan again. If the symptoms return, you may tried Benadryl. Return to the ER if you notice throat swelling, difficulty swallowing or any other concerns. ACUTE ALLERGIC REACTION: Your symptoms are due to an allergic reaction. Allergy can cause hives, swelling of the hands, feet, and face, hoarseness, and difficulty swallowing or breathing. It may be due to exposure to medication, animal dander, foods, infection, or insect bites. Medication is a common cause, even when prior use of this same medication caused no problems. Acute treatment may include adrenalin and antihistamines. Usually, the specific allergic agent can't be identified unless repeated episodes occur. Home treatment includes the following: (1) Stop any suspicious medications. This will be discussed with you. (2) Oral antihistamines for the next four to five days. Example, diphenhydramine (Benadryl) every four hours. (3) You may also use cimetidine (Tagamet), ranitidine (Zantac), or famotidine ( Pepcid) every four hours if diphenhydramine is not controlling itching and hives. (4) Avoid aspirin until the hives completely disappear. (5) Avoid hot baths or showers until the hives are completely gone. Call the doctor if faintness, difficulty swallowing, tightness in the chest , or wheezing occurs. ANTIHISTAMINES: An antihistamine has been given and/or prescribed to control your symptoms. Antihistamines are used for many reasons, including itching, watering eyes, runny nose, allergic swelling, hives, and insect stings. Antihistamines may cause drowsiness, especially with the first dose. Do not operate machinery or drive while under the effects of the medication. Other common side effects include dry mouth and eyes. In older persons, antihistamines can occasionally cause urinary retention, constipation, and trouble focusing the eyes. Do not combine the medication with alcohol, or with any other medication without talking to your doctor. USE OF DIPHENHYDRAMINE: The use of diphenhydramine (Benadryl) has been recommended to control allergic symptoms. The 25 mg strength is available over- the-counter, as well as the elixir. This antihistamine is used for many symptoms. It's useful for itching, watering eyes and nose, allergic swelling, hives, and insect stings. The medication can be repeated four times daily. Age Elixir (12.5 mg/tsp) 25 mg pill 2-3 yr 1/2 tsp 4-8 yr 1 tsp 9-14 yr 2 tsp one tab adult 1-2 tabs Antihistamines may cause drowsiness, especially with the first dose. Do not operate machinery or drive while under the effects of the medication. Do not combine the medication with alcohol, or with any other medication without talking to your doctor. FOLLOW-UP CARE: If you have been referred to a physician for follow-up care, call the physician s office for an appointment as you were instructed or within the next two days. If you experience worsening or a significant change in your symptoms, notify the physician immediately or return to the Emergency Department at any time for re-evaluation. Forms: Elevated Blood Pressure [facility]errals[facility] [Provider Group] - Follow up as needed
[2017-10-04 18:47] VITALS: BP 126/83
== END 2017-10-04 18:55 | disposition home or self-care (01) ==
LOC: ER 18:08
DX: G24.01 Drug induced subacute dyskinesia (principal); R11.10 Vomiting, unspecified
CPT/HCPCS: 99283; 96374; J1200

== ENCOUNTER 2018-06-05 13:56 | Emergency (ER) | payer SELFPAY ==
[2018-06-05] MEDS ORDERED: NORMAL SALINE 1000 ML 1,000 ML IV ONE (14:20)
--- NOTE | 2018-06-05 14:22 | ER Document Report ---
ED Medical Screen (RME) - General Chief Complaint: Nausea/Vomiting/Diarrhea Stated Complaint: DIARRHEA,VOMITING Time Seen by Provider: 06/05/18 14:20 Mode of Arrival: Ambulatory Information source: Patient Notes: 33 years old female with a history of anxiety and psychiatric disorder presents today with nausea vomited 3 times and multiple loose stools general body aches and pain and chills. TRAVEL OUTSIDE OF THE [place] IN LAST 30 DAYS: No - Related Data Allergies/Adverse Reactions: NAUSEA MEDICATION UNSURE OF NAME Allergy (Uncoded 06/05/18 13:58) Past Medical History - Social History Family history: None, Reviewed & Not Pertinent Renal/ Medical History: Denies: Hx Peritoneal Dialysis Psychiatric Medical History: Reports: Hx Anxiety Past Surgical History: Reports: Hx Section - x2 - Immunizations Hx Diphtheria, Pertussis, Tetanus Vaccination: Yes Physical Exam - Vital signs Vitals: Temp Pulse Resp BP Pulse Ox 98.9 F 88 16 106/75 99 06/05/18 14:00 06/05/18 14:00 06/05/18 14:00 06/05/18 14:00 06/05/18 14:00 Course - Vital Signs Vital signs: Temp Pulse Resp BP Pulse Ox 98.9 F 88 16 106/75 99 06/05/18 14:00 06/05/18 14:00 06/05/18 14:00 06/05/18 14:00 06/05/18 14:00 Doctor's Discharge - Discharge Referrals: MARTA ROBLES DO [Primary Care Provider] - Follow up as needed
[2018-06-05 15:08] LABS: ABSOLUTE BASOPHILS # (AUTO) 0.1 10^3/uL (0.0-0.2); ABSOLUTE EOSINOPHILS # (AUTO) 0.2 10^3/uL (0.0-0.6); ABSOLUTE MONOCYTES (AUTO) 0.9 10^3/uL (0.1-1.4); ABSOLUTE NEUT (AUTO) 10.5 10^3/uL (1.7-8.2); BASOPHILS % (AUTO) 0.5 % (0-2); EOSINOPHILS % (AUTO) 1.2 % (0-6); HEMATOCRIT 37.2 % (36.0-47.0); HEMOGLOBIN 12.9 g/dL (12.0-15.5); LYMPHOCYTES % (AUTO) 14.6 % (13-45); MEAN CORPUSCULAR HEMOGLOBIN 30.9 pg (27.0-33.4); MEAN CORPUSCULAR HGB CONC 34.7 g/dL (32.0-36.0); MEAN CORPUSCULAR VOLUME 89 fl (80-97); MONOCYTES % (AUTO) 6.4 % (3-13); PLATELET COUNT 429 10^3/uL (150-450); RED BLOOD COUNT 4.18 10^6/uL (3.72-5.28); RED CELL DISTRIBUTION WIDTH 13.1 % (11.5-14.0); SEGMENTED NEUTROPHILS % (AUTO) 77.3 % (42-78); TOTAL CELLS COUNTED % (AUTO) 100 %; WHITE BLOOD COUNT 13.5 10^3/uL (4.0-10.5)
[2018-06-05 15:21] LABS: APPEARANCE,URINE CLEAR; BILIRUBIN,URINE NEGATIVE (NEGATIVE); COLOR,URINE YELLOW; GLUCOSE, URINE NEGATIVE (NEGATIVE); KETONES,URINE 20 mg/dL (NEGATIVE); LEUKOCYTE ESTERASE,URINE SMALL (NEGATIVE); NITRITE,URINE NEGATIVE (NEGATIVE); PROTEIN,URINE NEGATIVE (NEGATIVE); URINE SPECIFIC GRAVITY 1.019; UROBILINOGEN,URINE NEGATIVE mg/dL (<2.0)
[2018-06-05 15:28] LABS: A TYPE INFLUENZA AG NEGATIVE (NEGATIVE); B INFLUENZA AG NEGATIVE (NEGATIVE)
--- NOTE | 2018-06-05 16:04 | RADIOLOGY REPORT (SQ) ---
EXAM DESCRIPTION: ACUTE ABDOMEN SERIES COMPLETED DATE/TIME: 06/05/2018 3:55 pm REASON FOR STUDY: Abdominal pain COMPARISON: Two-view chest 10/07/2016 NUMBER OF VIEWS: Three views. TECHNIQUE: Frontal chest, supine abdomen and upright abdomen radiographic images acquired. LIMITATIONS: None. FINDINGS: CHEST: Lungs clear of infiltrates. No pleural effusion or pneumothorax. Cardiac silhouet te size, cecilia normal. FREE AIR: None. No abnormal gas collections. BOWEL GAS PATTERN: Nonspecific nonobstructive bowel gas pattern with air-fluid levels in nondistended colon, stomach fundus, and mid epigastric small bowel. CALCIFICATIONS: No suspicious calcifications. HARDWARE: None in the abdomen. SOFT TISSUES: No gross mass or suggestion of organomegaly. BONES: No acute fracture. No worrisome bone lesions. OTHER: No other significant finding. IMPRESSION: Nonspecific bowel gas pattern TECHNICAL DOCUMENTATION: JOB ID: [id number] [employer]- All Rights Reserved Reading location - IP/workstation name: [email or web address]
[2018-06-05] MEDS ORDERED: ONDANSETRON HCL INJ/PF 4 MG/2 ML SDV IV ONE (16:18)
[2018-06-05] MEDS ORDERED: DICYCLOMINE HCL 20 MG TABLET PO ONE (16:19)
[2018-06-05 16:49] LABS: ALANINE AMINOTRANSFERASE < 6 U/L (9-52); ALKALINE PHOSPHATASE 53 U/L (38-126); ANION GAP 10 (5-19); ASPARTATE AMINO TRANSFERASE 9 U/L (14-36); BILIRUBIN,DIRECT 0.1 mg/dL (0.0-0.4); BLOOD UREA NITROGEN 16 mg/dL (7-20); CALCIUM 9.3 mg/dL (8.4-10.2); CARBON DIOXIDE 21 mmol/L (22-30); CHLORIDE 106 mmol/L (98-107); GLUCOSE 84 mg/dL (75-110); LIPASE 180.7 U/L (23-300); POTASSIUM 3.9 mmol/L (3.6-5.0); SODIUM 137.4 mmol/L (137-145); TOTAL PROTEIN 6.8 g/dL (6.3-8.2)
--- NOTE | 2018-06-05 17:49 | ER Document Report ---
ED General - General Chief Complaint: Nausea/Vomiting/Diarrhea Stated Complaint: DIARRHEA,VOMITING Time Seen by Provider: 06/05/18 14:20 Mode of Arrival: Ambulatory TRAVEL OUTSIDE OF THE [place] IN LAST 30 DAYS: No - HPI Patient complains to provider of: Nausea vomiting diarrhea Notes: Patient coming in for nausea vomiting diarrhea ongoing since 1 AM today. Patient denies any recent illnesses new pets denies any recent travel or antibiotics. Patient denies any sick contacts. Patient states she is having abdominal cramping. Patient otherwise looks to be in no obvious distress upon my evaluation. - Related Data Allergies/Adverse Reactions: metoclopramide [From Reglan] Allergy (Verified 06/05/18 14:29) NAUSEA MEDICATION UNSURE OF NAME Allergy (Uncoded 06/05/18 13:58) Past Medical History - General Information source: Patient - Social History Smoking Status: Current Every Day Smoker Drug Abuse: Marijuana Family History: Reviewed & Not Pertinent Patient has suicidal ideation: No Patient has homicidal ideation: No Renal/ Medical History: Denies: Hx Peritoneal Dialysis Psychiatric Medical History: Reports: Hx Anxiety Past Surgical History: Reports: Hx Section - x2 - Immunizations Hx Diphtheria, Pertussis, Tetanus Vaccination: Yes Review of Systems - Review of Systems Constitutional: No symptoms reported EENT: No symptoms reported Cardiovascular: No symptoms reported Respiratory: No symptoms reported Gastrointestinal: Diarrhea, Nausea, Vomiting Genitourinary: No symptoms reported Female Genitourinary: No symptoms reported Musculoskeletal: No symptoms reported Skin: No symptoms reported Hematologic/Lymphatic: No symptoms reported Neurological/Psychological: No symptoms reported -: Yes All other systems reviewed and negative Physical Exam - Vital signs Vitals: Temp Pulse Resp BP Pulse Ox 98.9 F 88 16 106/75 99 06/05/18 14:00 06/05/18 14:00 06/05/18 14:00 06/05/18 14:00 06/05/18 14:00 Interpretation: Normal - General General appearance: Appears well, Alert - HEENT Head: Normocephalic, Atraumatic Eyes: Normal Pupils: PERRL - Respiratory Respiratory status: No respiratory distress Chest status: Nontender Breath sounds: Normal Chest palpation: Normal - Cardiovascular Rhythm: Regular Heart sounds: Normal auscultation Murmur: No - Abdominal Inspection: Normal Distension: No distension Bowel sounds: Normal Tenderness: Nontender Organomegaly: No organomegaly - Back Back: Normal, Nontender - Extremities General upper extremity: Normal inspection, Nontender, Normal color, Normal ROM , Normal temperature General lower extremity: Normal inspection, Nontender, Normal color, Normal ROM , Normal temperature, Normal weight bearing. No: Dale's sign - Neurological Neuro grossly intact: Yes Cognition: Normal Orientation: AAOx4 Lynette Coma Scale Eye Opening: Spontaneous [place] Coma Scale Verbal: Oriented Lynette Coma Scale Motor: Obeys Commands Lynette Coma Scale Total: 15 Speech: Normal Motor strength normal: LUE, RUE, LLE, RLE Sensory: Normal - Psychological Associated symptoms: Normal affect, Normal mood - Skin Skin Temperature: Warm Skin Moisture: Dry Skin Color: Normal Course - Re-evaluation Re-evalutation: 06/05/18 21:08 The patient presents with nausea vomiting diarrhea without signs of peritonitis or other life-threatening or serious etiology. The patient appears stable for discharge and has been instructed to return immediately if the symptoms worsen in any way, or in 8-12hr if not improved for re-evaluation. The patient has been instructed to return if the symptoms worsen or change in any way. - Vital Signs Vital signs: Temp Pulse Resp BP Pulse Ox 98.7 F 76 20 109/73 99 06/05/18 18:13 06/05/18 18:13 06/05/18 18:13 06/05/18 18:13 06/05/18 18:13 - Laboratory Result Diagrams: 06/05/18 14:50 06/05/18 16:04 Laboratory results interpreted by me: 06/05/18 06/05/18 06/05/18 14:50 14:50 16:04 WBC 13.5 H Absolute Neutrophils 10.5 H Carbon Dioxide 21 L AST 9 L ALT < 6 L Urine Ketones 20 H Ur Leukocyte Esterase SMALL H Discharge - Discharge Clinical Impression: Nausea vomiting and diarrhea Condition: Good Disposition: HOME, SELF-CARE Instructions: Diarrhea, Nonspecific ([facility]), Gastritis ([facility]), Vomiting ([facility]) Additional Instructions: Your evaluation does not show any signs of significant infection or any other concerning pathology. Will likely have a viral gastroenteritis. Would recommend drinking plenty of fluids for the next 12-24 hours and would avoid any food. When you do feel like eating food would recommend starchy foods such as crackers potato with ethanol and avoid any food that has fat grease or oil. I would recommend taking the Zofran is provided for any nausea vomiting Bentyl for abdominal cramps also he may take Tylenol and Motrin. Return to ER symptoms worsen. Prescriptions: Dicyclomine HCl [Bentyl 20 mg Tablet] 20 mg PO QID #40 tablet Ondansetron HCl [Zofran 4 mg Tablet] 1 - 2 tab PO Q6 #30 tablet Referrals: MARTA ROBLES DO [Primary Care Provider] - Follow up as needed
[2018-06-05] MEDS ORDERED: ONDANSETRON ODT 4 MG TAB (6 TAB/ER DISP) PO PRN (17:51)
[2018-06-05 18:20] VITALS: BP 109/73
== END 2018-06-05 18:20 | disposition home or self-care (01) ==
LOC: ER 13:56
DX: R11.2 Nausea with vomiting, unspecified (principal); R19.7 Diarrhea, unspecified; F17.200 Nicotine dependence, unspecified, uncomplicated
CPT/HCPCS: 99284; 96361; 96374; 36415; 83690; 85025; 81025; 80053; 81001; 87804; 74022; J3490; J2405; J7030

== ENCOUNTER 2019-05-17 23:01 | Emergency (ER) | payer SELFPAY ==
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
--- NOTE | 2019-05-18 03:03 | RADIOLOGY REPORT (SQ) ---
CLINICAL HISTORY: fall, cranium tenderness COMPARISON: None. TECHNIQUE: CT HEAD WITHOUT IV CONTRAST on 05/18/2019 12:00 AM SQL TECH This exam was performed according to our departmental dose-optimization program, which includes automated exposure control, adjustment of the mA and/or kV according to patient size and/or use of iterative reconstruction technique. FINDINGS: There is no acute hemorrhage, mass effect or midline shift. Shields-white differentiation is preserved. There is no hydrocephalus. There is no significant volume loss for age. The calvarium is intact. Orbits and globes are unremarkable. The paranasal sinuses are clear. Mastoid air cells are clear. IMPRESSION: No acute intracranial findings.
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
[2019-05-18 03:39] VITALS: BP 126/80
== END 2019-05-18 03:40 | disposition home or self-care (01) ==
LOC: ER 23:01
DX: S00.83XA Contusion of other part of head, initial encounter (principal); W19.XXXA Unspecified fall, initial encounter; Y92.009 Unspecified place in unspecified non-institutional (private) residence as the place of occurrence of the external cause; F17.200 Nicotine dependence, unspecified, uncomplicated; F12.10 Cannabis abuse, uncomplicated
CPT/HCPCS: 70450; 99283